=== PATIENT | female | born 1935 | race Caucasian/White ===

== ENCOUNTER 2022-07-11 09:06 | Day surgery (SDC) | payer MEDICARE, OTHER ==
[2022-07-11] VITALS (15 sets, daily range): BP systolic 132–158; BP diastolic 68–100
[~2022-07-11] VITALS: Ht 148 cm; Wt 62.7 kg
[~2022-07-11 09:06] MED LIST: AMOX500 PO; Calcium Carbon500 MG PO; MULVITA PO; SPIR25 PO; VITAMIN D310 MC4 PO; ZOCOR20 MG PO; [UNRECOGNIZED DRUG - REMARK]
--- NOTE | 2022-07-11 12:38 | NUR ---
CARE TO [facility] GOOD, DENIES COMPLAINTS OF
--- NOTE | 2022-07-11 13:28 | NUR ---
REPORT RECEIVED. VSS. PT ABLE TO REPOSITION SELF IN BED. PT REPORTS ACHING PAIN OF 3/10 TO ABDOMEN. PT DENIES NAUSEA AT THIS TIME. PT REQUESTING PO FLUIDS AND TOLERATING THEM WELL. PT UP TO BEDSIDE COMMODE TO VOID. PT HAS 3 SURGICAL INCISION SITES DRESSED WITH DERMABOND THAT ARE C/D/I WITHOUT DRAINAGE, REDNESS, OR SWELLING NOTED. PT HAS SMALL CUT TO LOWER RIGHT SIDE OF ABDOMEN THAT IS NOT AN INCISION SITE. BLEEDING NOTED. CUT COVERED WITH BANDAID AND GAUZE.
--- NOTE | 2022-07-11 14:12 | NUR ---
PT RESTING COMFORTABLY. DAUGHTER AT BEDSIDE. PT TOLERATING PO FLUIDS AND REQUESTING PAIN PILL FOR DISCOMFORT BUILDING FROM 05/05 TO 06/05.
--- NOTE | 2022-07-11 14:36 | NUR ---
Patient up to Ambulate independently. Gait steady AND CONSISTENT WITH PT BASELINE. VSS. Discharge instructions reviewed with patient. Patient verbalizes understanding. Copy given to patient to take home. Dressing to procedure site clean, dry, intact with no visible drainage, swelling, erythema or bruising noted. Patient States Post-Procedure ride home has been arranged. Discharged via wheelchair to private car for ride home. PT BELONGINGS RETURNED TO PT.
--- NOTE | 2022-07-12 08:38 | NUR ---
07/12/22 0838 Charity Vizcaino VERIFICATIONS: EDIT CHART.
== END 2022-07-11 23:02 | disposition home or self-care (01) ==
LOC: ORSCMMR 09:06 → ORD 07-14 07:30
PROVIDERS: Surgery
PROC: 0WUF4JZ Supplement Abdominal Wall with Synthetic Substitute, Percutaneous Endoscopic Approach (ICD-10-PCS; principal; 2022-07-11 10:15)
PROC: 8E0W4CZ Robotic Assisted Procedure of Trunk Region, Percutaneous Endoscopic Approach (ICD-10-PCS; principal; 2022-07-11 10:15)
PROC: 0YQ54ZZ Repair Right Inguinal Region, Percutaneous Endoscopic Approach (ICD-10-PCS; principal; 2022-07-11 10:15)
DX: K40.30 Unilateral inguinal hernia, with obstruction, without gangrene, not specified as recurrent (principal); K45.0 Other specified abdominal hernia with obstruction, without gangrene
CPT/HCPCS: 49650; 49659; S2900; A9270; C1781; J1100; J1885; J2405; J2704; J2710; J2795; J3010; J7120

== ENCOUNTER → 2022-10-17 | Outpatient (CLI) | payer MEDICARE, OTHER ==
[2022-10-17 13:03] LABS: BASOPHILS ABSOLUTE AUTO 0.08 K/mm3 (0.00-0.23); BASOPHILS PERCENT AUTO 1 % (0-2); EOSINOPHILS ABSOLUTE AUTO 0.72 K/mm3 (0.00-0.68); EOSINOPHILS PERCENT AUTO 12 % (0-6); Hematocrit 42.4 % (33.0-51.0); IMMATURE GRAN ABSOLUTE AUTO 0.04 K/mm3 (0.00-0.10); IMMATURE GRAN PERCENT AUTO 1 % (0-1); LYMPHOCYTES ABSOLUTE AUTO 1.32 K/mm3 (0.84-5.20); LYMPHOCYTES PERCENT AUTO 22 % (21-46); MONOCYTES ABSOLUTE AUTO 0.44 K/mm3 (0.16-1.47); MONOCYTES PERCENT AUTO 7 % (4-13); Mean Corpuscular HGB 29.9 pg (26.0-34.0); Mean Corpuscular Volume 91 fL (80-100); Mean Platelet Volume 9.2 fL (9.1-12.4); NEUTROPHILS ABSOLUTE AUTO 3.41 K/mm3 (1.96-9.15); NEUTROPHILS PERCENT AUTO 57 % (41-73); Platelet Count 209 K/mm3 (150-400); RDW Coefficient Variation 13.2 % (11.7-14.2); RDW Standard Deviation 43.4 fL (35.1-46.3); Red Blood Cell Count 4.68 M/mm3 (3.80-5.20); White Blood Cell Count 6.01 K/mm3 (4.00-11.30)
[2022-10-17 15:41] LABS: Bun/Creatinine Ratio 21.1 (12.0-20.0); Calcium, Blood 8.8 mg/dL (8.5-10.1); Creatinine, Blood 0.85 mg/dL (0.40-1.00); Potassium, Blood 4.3 mmol/L (3.5-5.5)
== END | disposition home or self-care (01) ==
LOC: LAB 11:24 → LAB SHORT 11:24
PROVIDERS: Nurse Practitioner Family
DX: I10 Essential (primary) hypertension (principal)
CPT/HCPCS: 80048; 85025